=== PATIENT | male | born 1990 | race American Indian/Alaskan Native ===

== ENCOUNTER 2017-03-10 00:03 | Emergency (ER) | payer OTHER ==
[~2017-03-10] VITALS: Ht 167.6 cm; Wt 59.9 kg
[~2017-03-10 00:03] MED LIST: CEPHALEXIN500 MG PO
[2017-03-10] MEDS ORDERED: PROTONIX40 MG PO (02:57)
[2017-03-10] MEDS ORDERED: DOXYCYCLINE HY100 MG PO (22:40)
== END 2017-03-10 03:05 | disposition home or self-care (01) ==
LOC: ED 00:03
DX: R10.9 Unspecified abdominal pain (principal); F17.200 Nicotine dependence, unspecified, uncomplicated; Z79.899 Other long term (current) drug therapy
CPT/HCPCS: 80053; 81001; 83690; 85025; 96361; 96374; 99283; G0480; J2405; J7030

== ENCOUNTER 2017-03-10 17:42 | Emergency (ER) | payer OTHER ==
[~2017-03-10] VITALS: Ht 167.6 cm; Wt 60.3 kg
[~2017-03-10 17:42] MED LIST changes: +PROTONIX40 MG PO
[2017-03-10] MEDS ORDERED: DOXYCYCLINE HY100 MG PO (22:40)
== END 2017-03-10 23:19 | disposition home or self-care (01) ==
LOC: ED 17:42
DX: N45.1 Epididymitis (principal); F17.200 Nicotine dependence, unspecified, uncomplicated; Z79.899 Other long term (current) drug therapy
CPT/HCPCS: 76870; 85025; 99284

== ENCOUNTER 2023-12-04 01:17 | Emergency (ER) | payer OTHER ==
[~2023-12-04] VITALS: Ht 167.6 cm; Wt 66.0 kg
[~2023-12-04 01:17] MED LIST changes: +DOXYCYCLINE HY100 MG PO
[2023-12-04] MEDS ORDERED: LACTATED RINGER'S 1,000 ML IV ONE ×2 (01:30→03:30)
[2023-12-04] MEDS ORDERED: NALOXONE HCL 0.4 MG SYR IV ONE (03:15)
[2023-12-04 03:23] LABS: BASOPHILS 2.5 % (0-2); EOSINOPHILS 3.7 % (0-6); HEMATOCRIT 36.2 % (35.0-50.0); HEMOGLOBIN 12.2 g/dL (12.0-18.0); LYMPHOCYTES 15.3 % (24-44); MCH 29.5 (27-36); MCHC 33.8 g/dl (30-36); MCV 87.3 fl (81-99); MONOCYTES 8.8 % (0-12); NEUTROPHILS 69.7 % (39-80); PLATELET COUNT 241 K/uL (140-440); RBC 4.14 M/ul (4.3-5.7); RDW 14.3 (10.5-15.0)
[2023-12-04 03:45] LABS: ACETAMINOPHEN 0 ug/mL (10-30); ALBUMIN 2.9 g/dL (3.4-5.0); ALBUMIN/GLOBULIN RATIO 0.85 (1.1-2.4); ALCOHOL, MEDICAL <3 ng/dL (<3); ALKALINE PHOSPHATASE 80 U/L (46-116); ALT (SGPT) 23 U/L (14-59); ANION GAP 10.2 (7-21); AST (SGOT) 25 U/L (15-37); BILIRUBIN, TOTAL 0.3 ng/dL (0.2-1.0); BUN/CREATININE RATIO 13.54 (6.0-28.6); CALCIUM 8.1 mg/dL (8.5-10.1); CARBON DIOXIDE 33 mmol/L (21-32); CHLORIDE 105 mmol/L (98-107); CREATININE, SERUM 0.96 mg/dL (0.70-1.30); GLOMERULAR FILTRATION RATE,EST 108 mL/min (>60); POTASSIUM 4.2 mmol/L (3.5-5.1); PROTEIN, TOTAL 6.3 g/dL (6.4-8.2); SALICYLATE 0.2 mg/dL (2.8-20.0); TSH, 3RD GENERATION 0.604 uIU/mL (0.358-3.740); UREA NITROGEN 13 mg/dL (7-18)
[2023-12-04 03:52] LABS: AMPHETAMINES, URINE POSITIVE (NEGATIVE); BARBITURATES, URINE NEGATIVE (NEGATIVE); BENZODIAZEPINE, URINE NEGATIVE (NEGATIVE); BUPRENORPHINE, URINE NEGATIVE (NEGATIVE); CANNABINOID, URINE NEGATIVE (NEGATIVE); COCAINE, URINE NEGATIVE (NEGATIVE); ECSTASY, URINE NEGATIVE (NEGATIVE); FENTANYL, URINE POSITIVE (NEGATIVE); METHADONE, URINE NEGATIVE (NEGATIVE); OPIATES, URINE NEGATIVE (NEGATIVE); OXYCODONE, URINE NEGATIVE (NEGATIVE); PHENCYCLIDINE, URINE NEGATIVE (NEGATIVE)
[2023-12-04] MEDS ORDERED: NALOXONE 4 MG NASAL SPRAY #2 HOME.PACK NAS ONE (05:00)
[2023-12-04 06:38] VITALS: BP 108/73
== END 2023-12-04 06:38 | disposition home or self-care (01) ==
LOC: ED 01:17
PROVIDERS: Internal Medicine
DX: T40.411A Poisoning by fentanyl or fentanyl analogs, accidental (unintentional), initial encounter (principal)
CPT/HCPCS: 36415; 80053; 80307; 84443; 85025; 96374; 99284-25; G0480; J2310; J3490; J7121